=== PATIENT | female | born 1990 | race Caucasian/White ===

== ENCOUNTER 2020-07-26 05:20 | Day surgery (SDC) | payer OTHER ==
[2020-07-25 10:06] VITALS: BMI 32.1
[2020-07-26] MEDS ORDERED: MIDAZOLAM HCL 2 MG/2 ML SINGLE DOSE VIAL ONE (08:48)
[2020-07-26] MEDS ORDERED: LIDOCAINE HCL 1%, 10 MG/ML (20ML VIAL) ONE (09:02)
[2020-07-26] MEDS ORDERED: LIDOCAINE HCL 1%, 10 MG/ML (20ML VIAL) ID ONE ×2 (09:33)
[2020-07-26] MEDS ORDERED: SUCCINYLCHOLINE CHLORIDE 200 MG/10 ML SYRINGE ONE (10:21)
[2020-07-26] MEDS ORDERED: PROPOFOL 20 ML ONE ×2 (10:21)
[2020-07-26] MEDS ORDERED: KETOROLAC TROMETHAMINE 30 MG/1 ML VIAL ONE (10:24)
[2020-07-26] MEDS ORDERED: ceFAZolin SODIUM 1 GM VIAL ONE (10:24)
[2020-07-26] MEDS ORDERED: DEXAMETHASONE SOD PHOSPHATE 4 MG/1 ML VIAL ONE (10:24)
--- NOTE | 2020-07-26 11:10 | OP ---
DATE OF OPERATION: 07/26/2020 PREOPERATIVE DIAGNOSIS: Left breast mass. POSTOPERATIVE DIAGNOSIS: Left breast mass. PROCEDURE: Excision of left breast mass. SURGEON: Frida Mckenzie MD ANESTHESIA: Local with IV sedation. ESTIMATED BLOOD LOSS: Minimal. COMPLICATIONS: None. This was a sterile procedure. INDICATION: Patient presented with a palpable mass in left breast 7 to 8 o'clock areola border. This was increasing in size and more tender and appeared to be a possible epidermoid cyst with excoriation right next to it. My recommendation was an excision. The procedure was discussed, with all the questions answered. PROCEDURE IN DETAIL: Patient was brought to [facility] in [place], taken into the operating room, and after IV sedation, IV antibiotics, the left breast was sterilely prepped and draped in the usual sterile fashion. The area on the inner left breast at the mass was anesthetized with 1% lidocaine without epinephrine. An ellipse of skin was taken to include the skin overlying this mass as well as a slight excoriation medial to it. This was excised en bloc and sent to pathology as a left breast excisional biopsy. Hemostasis was assured with electrocautery. The incision was closed in a routine fashion with interrupted 2-0 Vicryl and running 4-0 Biosyn. A sterile dressing with Tegaderm, 4 x 4's was applied. She tolerated the procedure well, was taken to recovery in good condition. FRIDA MCKENZIE M.D. [id number]
[2020-07-26 12:07] VITALS: BP 108/68; PULSE 56; TEMP 97.1
--- NOTE | 2020-07-29 16:01 | PATH ---
Surgical Pathology Report Patient Name: BLANCA MARQUIS [facility]. Rec. #: [id number] /Age/Gender: 1990 (Age: 29) / F Account: [id number] Location: [facility] Taken: 07/26/2020 Received: 07/26/2020 Reported: 07/29/2020 Physicians: Frida Allen M.D. Specimen(s) Received LEFT BREAST MASS Clinical History Left breast mass Final Diagnosis LEFT BREAST MASS, EXCISION: PORTION OF SKIN SHOWING EPIDERMAL INCLUSION CYST, RUPTURED, WITH ACUTE AND CHRONIC INFLAMMATION. Electronically Signed Edd Saldana M.D. Gross Description Received in formalin labeled "excision of left breast mass," is a 3.0 x 1.1 cm browne, elliptical, unoriented portion of skin excised to depth of 2.1 cm. The epidermal surface displays a 0.4 x 0.3 cm possibly ulcerated lesion. Sectioning reveals an intact cystic structure. Tax [employer] sections are submitted in 2 cassettes. Time to formalin fixation: 3 minutes Total formalin fixation time: Approximately 7 hours. /07/26/2020 saudi/07/26/2020
== END 2020-07-26 12:25 | disposition home or self-care (01) ==
LOC: JASU-SURG 05:20
PROVIDERS: ATTEND Surgery
PROC: 0HBT0ZZ Excision of Right Breast, Open Approach (ICD-10-PCS; principal; 2020-07-26 10:00)
DX: N60.02 Solitary cyst of left breast (principal)
CPT/HCPCS: 36415; 84703; 88305-TC

== ENCOUNTER 2022-11-23 04:32 | Day surgery (SDC) | payer OTHER ==
[2022-11-20 11:20] VITALS: BMI 36.8
[2022-11-23] MEDS ORDERED: ACETAMINOPHEN 325 MG TABLET (FP) PO PRN (06:52)
[2022-11-23] MEDS ORDERED: IBUPROFEN 400 MG TABLET (FP) PO PRN (06:52)
[2022-11-23] MEDS ORDERED: PROPOFOL 20 ML ONE (07:37)
[2022-11-23] MEDS ORDERED: PROPOFOL 40 ML ONE (07:37)
[2022-11-23] MEDS ORDERED: oxyCODONE HCL 5 MG TABLET PO PRN (08:49)
[2022-11-23] MEDS ORDERED: ONDANSETRON 4 MG/2 ML VIAL IVPUSH PRN (08:49)
[2022-11-23] MEDS ORDERED: PROMETHAZINE HCL 25 MG/1 ML VIAL IVPB PRN (08:49)
[2022-11-23] MEDS ORDERED: MIDAZOLAM HCL 2 MG/2 ML SINGLE DOSE VIAL ONE (09:13)
[2022-11-23] MEDS ORDERED: ONDANSETRON 4 MG/2 ML VIAL ONE ×2 (09:13→12:18)
[2022-11-23] MEDS ORDERED: KETOROLAC TROMETHAMINE 30 MG/1 ML VIAL ONE (09:14)
[2022-11-23] MEDS ORDERED: DEXAMETHASONE SOD PHOSPHATE 4 MG/1 ML VIAL ONE (09:14)
[2022-11-23 14:13] VITALS: BP 112/64; PULSE 68; RESP 20; TEMP 97
== END 2022-11-23 13:35 | disposition home or self-care (01) ==
LOC: JASU-SURG 04:32
PROVIDERS: ATTEND Obstetrics & Gynecology
PROC: 0UB98ZZ Excision of Uterus, Via Natural or Artificial Opening Endoscopic (ICD-10-PCS; principal; 2022-11-23 07:30)
PROC: 0HB9XZZ Excision of Perineum Skin, External Approach (ICD-10-PCS; 2022-11-23 07:30)
DX: N92.0 Excessive and frequent menstruation with regular cycle (principal); D25.0 Submucous leiomyoma of uterus; N84.0 Polyp of corpus uteri; N84.1 Polyp of cervix uteri; D23.5 Other benign neoplasm of skin of trunk
CPT/HCPCS: 81025; 86850; 86900; 86901; 88305-TC; 93005; 93010; 94760